=== PATIENT | female | born 1975 ===

== ENCOUNTER 2017-05-16 11:14 | Outpatient (CLI) | payer OTHER ==
--- NOTE | 2017-05-16 14:31 | Diagnostic Imaging Report ---
Indications: Elevated liver function tests Technique: Transabdominal real-time grayscale and duplex Doppler imaging of the upper abdomen and retroperitoneum was performed. Findings: Comparison: None. Liver normal size and surface contour, diffusely increased parenchymal echogenicity except for focal area of relatively decreased echogenicity adjacent to gallbladder fossa. No additional focal lesions. Gallbladder unremarkable. No intraluminal stones or sludge. No mural thickening or adjacent fluid collections. Sonographic Rosen sign negative.. Bile ducts normal caliber. Common bile duct 4 mm. Pancreas head and body unremarkable; tail obscured. Spleen unremarkable. Right kidney unremarkable. Left kidney unremarkable. Abdominal aorta, intrahepatic portion of inferior vena cava patent, normal caliber. Duplex Doppler imaging demonstrates antegrade flow in splenic, portal, hepatic veins. No ascites. IMPRESSION: Hepatic steatosis with focal sparing adjacent to gallbladder fossa Pancreatic tail obscured Remainder of exam unremarkable.
== END 2017-05-16 12:44 | disposition home or self-care (01) ==
LOC: ULS 11:14
DX: K76.0 Fatty (change of) liver, not elsewhere classified (principal); R79.89 Other specified abnormal findings of blood chemistry
CPT/HCPCS: 76700